=== PATIENT | male | born 1965 | race Caucasian/White ===

== ENCOUNTER 2019-07-25 06:15 | Emergency (ER) | payer OTHER ==
[2019-07-25 06:31] VITALS: TEMP 98.4; BMI 33.0
[2019-07-25] MEDS ORDERED: SODIUM CHLORIDE 1,000 ML IV STA (07:41)
[2019-07-25] MEDS ORDERED: ACETAMINOPHEN 1000 MG/100 ML VIAL (NON FORMULARY) IVPB ONE (07:41)
--- NOTE | 2019-07-25 07:41 | PDOC ---
History of Present Illness - General Chief Complaint: Pain, Acute Stated Complaint: PAIN,GROIN Time Seen by Provider: 07/25/19 07:36 History Source: Patient Exam Limitations: No Limitations - History of Present Illness Initial Comments: Michael Kaye is a 53 yo M w a hx of HTN, renal colic, chronic back pain, depression, and hypothyroidism who presents to the [facility] er with one day of intense right lower abdominal pain radiating to his right testicle. He states the pain was sharp, came and went and was excruciating in nature when the pain was present. The pain resolved on its own prior to being evaluated. He rated the pain as 10/10 and said the pain felt like his usual kidney stones but was abnormal because his kidney stone pain usually doesn't radiate to his testicle. He also states that when he urinates the end of his urination sevilla and he has been urinating more frequently than usual. Denies history of STD's. PCP: Rupesh Nj at the [place] [facility]: Back surgeries Social Hx: Smokes 1 PPD Allergies: Fish and seafood, NKDA Past History - Past Medical History Allergies/Adverse Reactions: Allergies Allergy/AdvReac Type Severity Reaction Status Date / Time Fish Containing Products Allergy Verified 07/25/19 07:57 sea food Allergy Uncoded 07/25/19 07:57 COPD: No Psychiatric Problems: Yes (depression) Thyroid Disease: Yes (Hypothyriodism) - Immunization History Immunization Up to Date: Yes - Psycho Social/Smoking Cessation Hx Smoking History: Current every day smoker Have you smoked in the past 12 months: Yes Number of Cigarettes Smoked Daily: 20 Information on smoking cessation initiated: No Hx Alcohol Use: Yes Drug/Substance Use Hx: No Review of Systems - Review of Systems Able to Perform ROS?: Yes Comments:: CONSTITUTIONAL: Absent: fever, no chills, no fatigue EYES: Absent: visual changes ENT: Absent: ear pain, no sore throat CARDIOVASCULAR: Absent: chest pain, no palpitations RESPIRATORY: Absent: cough, no SOB GI: Present: Abdominal pain, nausea Absent: no vomiting, no constipation, no diarrhea GENITOURINARY: Present: dysuria, frequency Absent: no hematuria MUSKULOSKELETAL: Present: Back pain Absent: no arthralgia, no myalgia SKIN: Absent: rash NEURO: Absent: headache *Physical Exam - Vital Signs Last Vital Signs Temp Pulse Resp BP Pulse Ox 98.4 F 85 20 165/108 H 10 L 07/25/19 06:30 07/25/19 06:30 07/25/19 06:30 07/25/19 06:30 07/25/19 06:30 - Physical Exam GENERAL: Well-appearing, well-nourished. No apparent distress. HEENT: Normocephalic, atraumatic. PERRL, EOM intact. CARDIOVASCULAR: Normal S1, S2. Regular rate and rhythm. PULMONARY: No evidence of respiratory distress. Lungs clear to auscultation bilaterally. No wheezing, rales or rhonchi. ABDOMEN: Mild RLQ abdominal pain. No CVA tenderness. Soft, non-distended. GENITOURINARY: + Prehn sign on the right. Decreased cremasteric reflex but still present bilaterally. No discoloration. No Hernias. EXTREMITIES: Normal ROM in all four extremities. No gross deformities. SKIN: Warm, dry. No rash NEUROLOGICAL: No focal neurological deficits. ED Treatment Course - LABORATORY CBC & Chemistry Diagram: 07/25/19 08:10 07/25/19 08:10 Medical Decision Making - Medical Decision Making Michael Kaye is a 53 yo M w a hx of HTN, renal colic, chronic back pain, depression, and hypothyroidism who presents to the [facility] er with one day of intense right lower abdominal pain radiating to his right testicle. He states the pain was sharp, came and went and was excruciating in nature when the pain was present. The pain resolved on its own prior to being evaluated. He rated the pain as 10/10 and said the pain felt like his usual kidney stones but was abnormal because his kidney stone pain usually doesn't radiate to his testicle. He also states that when he urinates the end of his urination sevilla and he has been urinating more frequently than usual. Denies history of STD's. Vital Signs Temp Pulse Resp BP Pulse Ox 98.4 F 85 20 165/108 H 10 L 07/25/19 06:30 07/25/19 06:30 07/25/19 06:30 07/25/19 06:30 07/25/19 06:30 DDx IBNLT: Renal colic, UTI, pyelo, torsion, epidydymo-orchitis Plan: Labs, Urine, US, IV hydration, analgesia, re-assess. Labs: Cr 1.5 Urine: 3+ blood - No signs of infection CT: Small 3 mm non-obstructing stone in right kidney US: No signs of torsion or epidydymitis Re-assessment: Patient feels much better after tylenol and requests to be discharged. Dispo: Home with Uro and PCP fu - Patient handed copies of his US and CT reports and instructed to follow up with his PCP and Urologist to discuss these findings. Discharge - Discharge Information Problems reviewed: Yes Clinical Impression/Diagnosis: Right testicular pain Condition: Improved Disposition: HOME - Admission No - Follow up/Referral Referrals: Ross West MD [Staff Physician] - - Patient Discharge Instructions Patient Printed Discharge Instructions: Kidney Stones (Alternative Therapy), Kidney Stones -- Adult Additional Instructions: You came into the ER after you had right testicular pain. We did a cat scan and ultrasound of your testicles and found no dangerous abnormalities. You have been given a copy of your formal reads. Please make sure to discuss these findings with both your primary care doctor and the urologist we are referring you to in the next 3 to 5 days. Please make sure to schedule follow up appointments with your primary care doctor and the urologist we are referring you to in the next 3 days. Come back to the ER immediately with any new or worsening concerns. Thank you for coming to the [facility] ER. We hope you feel better soon! Print Language: KOREAN - Post Discharge Activity
[2019-07-25] MEDS ORDERED: ACETAMINOPHEN INJECTION 100 ML IVPB ONE (08:00)
[2019-07-25 08:56] LABS: BASO % 0.6 % (0-2.0); HEMATOCRIT 44.2 % (35.4-49); HEMOGLOBIN 15.1 GM/dL (11.7-16.9); MCH 30.9 pg (25.7-33.7); MCHC 34.2 g/dl (32.0-35.9); MEAN CELL VOLUME 90.6 fl (80-96); MEAN PLT VOLUME 9.7 fl (7.5-11.1); MONO % 7.7 % (3.8-10.2); NEUT % 72.7 % (42.8-82.8); PLATELET COUNT 182 K/MM3 (134-434); RBC 4.88 M/mm3 (4.00-5.60); RDW 14.5 % (11.9-15.9); WHITE BLOOD COUNT 7.6 K/mm3 (4.0-10.0)
[2019-07-25 09:12] LABS: ALBUMIN 3.9 g/dl (3.4-5.0); BILIRUBIN,TOTAL 0.2 mg/dL (0.2-1); BLOOD UREA NITROGEN 15.7 mg/dL (7-18); CALCIUM 8.4 mg/dL (8.5-10.1); CREATININE 1.5 mg/dL (0.55-1.3); POTASSIUM 4.3 mmol/L (3.5-5.1); TOT PROT 7.6 g/dl (6.4-8.2)
[2019-07-25 10:34] LABS: EPI CELLS 0.8 /HPF (0-5/HPF); HYALINE CASTS 0 /lpf (0-8); PH,URINE 7.5 (5.0-8.0); URINE APPEARANCE CLEAR; URINE BACTERIA 1.2 /hpf (NEGATIVE); URINE BILIRUBIN NEGATIVE (NEGATIVE); URINE COLOR YELLOW; URINE GLUCOSE (UA) NEGATIVE (NEGATIVE); URINE KETONE NEGATIVE (NEGATIVE); URINE LEUK ESTERASE NEGATIVE (NEGATIVE); URINE NITRITE NEGATIVE (NEGATIVE); URINE PROTEIN NEGATIVE (NEGATIVE); URINE RBC 211 /hpf (0-4); URINE WBC 2 /hpf (0-5)
--- NOTE | 2019-07-25 10:42 | PDOC ---
Attending Attestation - Resident Resident Name: Dylan Andrade - ED Attending Attestation I have performed the following: I have examined & evaluated the patient, The case was reviewed & discussed with the resident, I agree w/resident's findings & plan, Exceptions are as noted - HPI HPI: 07/25/19 10:42 53 yo M w a hx of HTN, renal colic, chronic back pain, depression, and hypothyroidism who presents to the [facility] er with one day of intense right lower abdominal pain radiating to his right testicle. - Physicial Exam PE: 07/25/19 13:04 Vitals: Triage Vital signs reviewed General Appearance: No acute distress, well nourished well developed, Head: Atraumatic, Cardiac: Regular rate and rhythym, no murmurs, no rubs, no gallops, Lungs: Clear to auscultation bilateral, good air movement bilaterally, Abdomen: Soft, non distended, normal bowel sounds, non tender to palpation Genitourinary: Normal testicular exam no pain no swelling no evidence of torsion Extremities: Full range of motion to all extremities, no cyanosis, clubbing, or edema Skin: Warm and dry, no rashes or lesions, no rash, no petechiae Psych: Normal mood, normal affect - Medical Decision Making 07/25/19 13:04 53 years old with right lower quadrant testicular pain now resolved differential diagnosis includes torsion although less likely given no pain versus passed stone We will check labs Urinalysis with blood CT with no evidence of stone patient completely asymptomatic while in the emergency department repeat abdominal examination benign History examination most consistent with this time the past on very strict return precautions discussed with patient Findings, need for follow-up and strict return instructions discussed with patient.
[2019-07-25 13:21] VITALS: BP 153/107; PULSE 80
== END 2019-07-25 13:39 | disposition home or self-care (01) ==
LOC: JER 06:15
PROC: 3E033NZ Introduction of Analgesics, Hypnotics, Sedatives into Peripheral Vein, Percutaneous Approach (ICD-10-PCS; principal; 2019-07-25)
DX: N50.811 Right testicular pain (principal); I10 Essential (primary) hypertension; E03.9 Hypothyroidism, unspecified; F32.9 Major depressive disorder, single episode, unspecified; M54.89 Other dorsalgia; Z87.442 Personal history of urinary calculi; G89.29 Other chronic pain
CPT/HCPCS: 36415; 74176-TC; 76870-TC; 80053; 81003; 83690; 85025; 87086; 99285-25; J0131; J7030